=== PATIENT | female | born 1955 | race Caucasian/White ===

== ENCOUNTER 2020-06-10 23:08 | Inpatient (IN) ==
[2020-06-11] MEDS ORDERED: ALUM/MAG/SIMETH/LIDO VISC 1:1 30 ML BOTTLE PO STA (00:48)
[2020-06-11] MEDS ORDERED: PANTOPRAZOLE 40 MG VIAL IV STA (00:48)
[2020-06-11] MEDS ORDERED: SODIUM CHLORIDE 0.9% 500 ML IV STA (00:48)
[2020-06-11] MEDS ORDERED: ONDANSETRON 4 MG/2 ML VIAL IV STA (00:48)
[2020-06-11] MEDS ORDERED: HYDROmorphone 2 MG/1 ML VIAL IV STA (00:48)
[2020-06-11 01:38] LABS: Basophils % 0.2 % (0.0-0.8); Hematocrit 38.8 VOL% (35.7-47.0); Hemoglobin 12.7 GM/DL (12.0-16.0); Immature Granulocytes % 0.6 %; Immature Granulocytes Absolute 0.08 #; Mean Corpuscular HGB Conc 32.7 GM/DL (32-36); Mean Corpuscular Volume 86.4 FL (87-102); Mean Platelet Volume 9.3 FL (9.6-12.0); Monocytes % 3.3 % (1.7-12.7); Neutrophils % 87.9 % (38.7-73.9); Platelet Count 266 T/CUMM (130-400); Red Blood Count 4.49 MC/CUMM (3.8-5.5); Red Cell Distribution Width 12.8 % (9.3-17.3); White Blood Count 12.7 T/CUMM (4-12)
[2020-06-11 01:57] LABS: Alanine Aminotransferase 30 U/L (13-56); Albumin 2.8 G/DL (3.4-5.0); Alkaline Phosphatase 129 U/L (45-117); Amylase 27 U/L (25-115); Aspartate Amino Transferase 36 U/L (0-37); Bilirubin,Total < 0.39 MG/DL (0.2-1.0); Blood Urea Nitrogen 16 MG/DL (7-18); Calcium 9.3 MG/DL (8.5-10.1); Estimated Glom Filtration Rate 58 ML/MIN; Glucose 255 MG/DL (74-106); Total Protein 8.1 G/DL (6.4-8.3)
[2020-06-11] MEDS ORDERED: DEXTROSE 50% 25 GM/50 ML VIAL IV PRN (03:52)
[2020-06-11] MEDS ORDERED: GLUCAGON 1 MG VIAL IM PRN (03:52)
[2020-06-11] MEDS ORDERED: ONDANSETRON 4 MG/2 ML VIAL IV PRN (03:57)
[2020-06-11] MEDS ORDERED: ALUM/MAG/SIMETH/LIDO VISC 1:1 30 ML BOTTLE PO PRN (03:57)
[2020-06-11] MEDS ORDERED: MORPHINE 4 MG/1 ML VIAL IV PRN (03:57)
[2020-06-11] MEDS: ACETAMINOPHEN 325 MG TABLET PO PRN (07:45)
[2020-06-11 08:04] LABS: Risk Ratio 2.06
[2020-06-11 08:05] LABS: Barbiturates Screen,Urine Negative (Negative); Benzodiazepines Screen,Urine Negative (Negative); Cannabinoid Screen,Urine Positive (Negative); Opiate Screen,Urine Negative (Negative); Phencyclidine Screen,Urine Negative (Negative)
[2020-06-11 08:17] LABS: CKMB % 5.2 %
[2020-06-11 08:24] LABS: Troponin I 1.48 NG/ML (0.00-0.045)
[2020-06-11] MEDS: INSULIN REGULAR 100 UNIT/ML SUBCUT SCH ×3 (08:59→18:33)
[2020-06-11] MEDS ORDERED: carvediloL 3.125 MG TABLET PO SCH (09:00)
[2020-06-11] MEDS ORDERED: ATORVASTATIN 20 MG TABLET PO SCH (09:00)
[2020-06-11] MEDS ORDERED: ENALAPRIL 2.5 MG TABLET PO SCH (09:00)
[2020-06-11] MEDS ORDERED: METOPROLOL TARTRATE 5 MG/5 ML VIAL IV ONE (09:19)
[2020-06-11] MEDS: CLOPIDOGREL 75 MG TABLET PO SCH (09:36)
[2020-06-11 09:37] LABS: Apearance,Urine CLOUDY (Clear); Bilirubin,Urine Negative (Negative); Blood, Urine Moderate mg/dL (Negative); Glucose,Urine (UA) 50 mg/dL (Negative); Ketones,Urine 20 mg/dL (Negative); Nitrite,Urine Negative (Negative); Protein,Urine 100 MG/DL; RBC,Urine 59 /HPF (0-4); Squamous Epithelial Cell,Urine Occasional /HPF (0-10); Urine Color Yellow (Yellow); Urine Specific Gravity 1.048 (1.001-1.035); WBC,Urine 196 /HPF (0-6)
[2020-06-11] MEDS ORDERED: METOPROLOL TARTRATE 25 MG TABLET PO SCH (10:00)
[2020-06-11] MEDS: ISOSORBIDE MONONITRATE 30 MG TABLET PO SCH (10:09)
[2020-06-11] MEDS: OMEGA 3 ACID ETHYL ESTERS 1 GM CAPSULE PO SCH (10:10)
[2020-06-11] MEDS: ENOXAPARIN 40 MG/0.4 ML SYRINGE SUBCUT SCH (10:53)
[2020-06-11] MEDS: METOPROLOL TARTRATE 25 MG TABLET PO SCH ×2 (10:53→21:44)
[2020-06-11] MEDS: ATORVASTATIN 40 MG TABLET PO SCH (21:43)
[2020-06-12] MEDS: INSULIN REGULAR 100 UNIT/ML SUBCUT SCH ×4 (01:15→18:27)
[2020-06-12] MEDS: ACETAMINOPHEN 325 MG TABLET PO PRN ×4 (02:45→22:08)
[2020-06-12 05:48] LABS: Basophils % 0.2 % (0.0-0.8); Hematocrit 31.5 VOL% (35.7-47.0); Immature Granulocytes % 1.1 %; Immature Granulocytes Absolute 0.22 #; Lymphocytes # 1.3 10*3/uL (1.4-4.0); Lymphocytes % 6.4 % (21.3-54.2); Mean Corpuscular HGB Conc 32.4 GM/DL (32-36); Mean Corpuscular Volume 88.2 FL (87-102); Mean Platelet Volume 9.6 FL (9.6-12.0); Monocytes % 6.3 % (1.7-12.7); Platelet Count 221 T/CUMM (130-400); Red Cell Distribution Width 13.2 % (9.3-17.3)
[2020-06-12 05:50] LABS: Calcium 8.3 MG/DL (8.5-10.1)
[2020-06-12 05:56] LABS: Hemoglobin 10.2 GM/DL (12.0-16.0); Red Blood Count 3.57 MC/CUMM (3.8-5.5)
[2020-06-12] MEDS ORDERED: SODIUM CHLORIDE 0.9% 1,000 ML IV ONE (07:26)
[2020-06-12] MEDS: MEROPENEM 500 MG in SODIUM CHLORIDE 0.9% 100 ML IV SCH ×3 (08:49→18:30)
[2020-06-12] MEDS: CLOPIDOGREL 75 MG TABLET PO SCH (08:50)
[2020-06-12] MEDS: ISOSORBIDE MONONITRATE 30 MG TABLET PO SCH (08:50)
[2020-06-12] MEDS: ASPIRIN EC 81 MG TABLET PO SCH (08:50)
[2020-06-12] MEDS: OMEGA 3 ACID ETHYL ESTERS 1 GM CAPSULE PO SCH (08:51)
[2020-06-12] MEDS: ENOXAPARIN 40 MG/0.4 ML SYRINGE SUBCUT SCH (08:51)
[2020-06-12] MEDS: METOPROLOL TARTRATE 25 MG TABLET PO SCH ×2 (08:54→21:25)
[2020-06-12] MEDS ORDERED: ASPIRIN EC 325 MG TABLET PO SCH (09:00)
[2020-06-12] MEDS: PHENAZOPYRIDINE 95 MG TABLET PO SCH ×3 (10:58→16:14)
[2020-06-12 12:48] LABS: Apearance,Urine Slightly Hazy (Clear); Bacteria,Urine Occasional /HPF (Few); Bilirubin,Urine Negative (Negative); Blood, Urine Large mg/dL (Negative); Glucose,Urine (UA) Negative (Negative); Ketones,Urine 5 mg/dL (Negative); Mucus,Urine Occasional /LPF (Occasional); Nitrite,Urine Negative (Negative); Protein,Urine 100 MG/DL; RBC,Urine 7 /HPF (0-4); Squamous Epithelial Cell,Urine Occasional /HPF (0-10); Urine Color Amber (Yellow); Urine Specific Gravity 1.021 (1.001-1.035); WBC,Urine 46 /HPF (0-6)
[2020-06-12] MEDS: ATORVASTATIN 40 MG TABLET PO SCH (21:24)
[2020-06-12] MEDS ORDERED: PHENAZOPYRIDINE 95 MG TABLET PO ONE (22:19)
[2020-06-13] MEDS: INSULIN REGULAR 100 UNIT/ML SUBCUT SCH ×4 (01:12→18:43)
[2020-06-13] MEDS: MEROPENEM 500 MG in SODIUM CHLORIDE 0.9% 100 ML IV SCH ×2 (02:13→08:39)
[2020-06-13 05:18] LABS: Basophils % 0.2 % (0.0-0.8); Eosinophils % 0.1 % (0.00-10.9); Hematocrit 32.7 VOL% (35.7-47.0); Hemoglobin 10.4 GM/DL (12.0-16.0); Immature Granulocytes % 0.6 %; Lymphocytes # 1.2 10*3/uL (1.4-4.0); Lymphocytes % 7.8 % (21.3-54.2); Mean Corpuscular HGB Conc 31.8 GM/DL (32-36); Mean Corpuscular Volume 88.4 FL (87-102); Monocytes % 4.8 % (1.7-12.7); Neutrophils % 86.5 % (38.7-73.9); Red Cell Distribution Width 13.2 % (9.3-17.3); White Blood Count 15.7 T/CUMM (4-12)
[2020-06-13 05:31] LABS: Calcium 8.7 MG/DL (8.5-10.1)
[2020-06-13 05:42] LABS: Platelet Count 171 T/CUMM (130-400)
[2020-06-13] MEDS ORDERED: GLUCAGON 1 MG VIAL IM PRN (08:12)
[2020-06-13] MEDS ORDERED: DEXTROSE 50% 25 GM/50 ML VIAL IV PRN (08:12)
[2020-06-13] MEDS: ENOXAPARIN 40 MG/0.4 ML SYRINGE SUBCUT SCH (08:40)
[2020-06-13] MEDS: OMEGA 3 ACID ETHYL ESTERS 1 GM CAPSULE PO SCH (08:40)
[2020-06-13] MEDS: CLOPIDOGREL 75 MG TABLET PO SCH (08:40)
[2020-06-13] MEDS: ASPIRIN EC 81 MG TABLET PO SCH (08:40)
[2020-06-13] MEDS: ISOSORBIDE MONONITRATE 30 MG TABLET PO SCH (08:41)
[2020-06-13] MEDS: ACETAMINOPHEN 325 MG TABLET PO PRN (08:41)
[2020-06-13] MEDS: METOPROLOL TARTRATE 25 MG TABLET PO SCH ×2 (08:41→21:09)
[2020-06-13] MEDS: PHENAZOPYRIDINE 95 MG TABLET PO SCH ×3 (09:30→16:39)
[2020-06-13] MEDS: cefTRIAXone 2,000 MG in SYRINGE 1 EACH IV SCH (12:00)
[2020-06-13] MEDS: ATORVASTATIN 40 MG TABLET PO SCH (21:08)
[2020-06-14] MEDS: INSULIN REGULAR 100 UNIT/ML SUBCUT SCH ×4 (00:29→18:15)
[2020-06-14 05:08] LABS: Basophils % 0.2 % (0.0-0.8); Eosinophils # 0.1 10*3/uL (0.0-0.87); Eosinophils % 0.9 % (0.00-10.9); Hematocrit 29.8 VOL% (35.7-47.0); Hemoglobin 9.5 GM/DL (12.0-16.0); Immature Granulocytes % 0.6 %; Immature Granulocytes Absolute 0.07 #; Lymphocytes # 1.5 10*3/uL (1.4-4.0); Lymphocytes % 12.6 % (21.3-54.2); Mean Corpuscular HGB Conc 31.9 GM/DL (32-36); Mean Corpuscular Volume 87.1 FL (87-102); Mean Platelet Volume 9.6 FL (9.6-12.0); Monocytes % 6.3 % (1.7-12.7); Neutrophils % 79.4 % (38.7-73.9); Platelet Count 187 T/CUMM (130-400); Red Blood Count 3.42 MC/CUMM (3.8-5.5); Red Cell Distribution Width 13.2 % (9.3-17.3); White Blood Count 11.5 T/CUMM (4-12)
[2020-06-14 05:33] LABS: Calcium 8.4 MG/DL (8.5-10.1); Osmolality,Calculated 271.2 MOS/KG (273-304)
[2020-06-14] MEDS: PHENAZOPYRIDINE 95 MG TABLET PO SCH ×3 (09:19→18:15)
[2020-06-14] MEDS: ASPIRIN EC 81 MG TABLET PO SCH (09:19)
[2020-06-14] MEDS: OMEGA 3 ACID ETHYL ESTERS 1 GM CAPSULE PO SCH (09:19)
[2020-06-14] MEDS: ENOXAPARIN 40 MG/0.4 ML SYRINGE SUBCUT SCH (09:20)
[2020-06-14] MEDS: CLOPIDOGREL 75 MG TABLET PO SCH (09:20)
[2020-06-14] MEDS: ISOSORBIDE MONONITRATE 30 MG TABLET PO SCH (09:20)
[2020-06-14] MEDS: METOPROLOL TARTRATE 25 MG TABLET PO SCH ×2 (09:22→21:10)
[2020-06-14] MEDS: cefTRIAXone 2,000 MG in SYRINGE 1 EACH IV SCH (12:45)
[2020-06-14] MEDS: ATORVASTATIN 40 MG TABLET PO SCH (21:10)
[2020-06-15] MEDS: INSULIN REGULAR 100 UNIT/ML SUBCUT SCH ×4 (01:07→18:07)
[2020-06-15 04:41] LABS: Basophils % 0.4 % (0.0-0.8); Eosinophils # 0.2 10*3/uL (0.0-0.87); Eosinophils % 2.1 % (0.00-10.9); Hematocrit 29.2 VOL% (35.7-47.0); Hemoglobin 9.4 GM/DL (12.0-16.0); Immature Granulocytes % 0.4 %; Immature Granulocytes Absolute 0.03 #; Lymphocytes # 1.5 10*3/uL (1.4-4.0); Lymphocytes % 18.2 % (21.3-54.2); Mean Corpuscular HGB Conc 32.2 GM/DL (32-36); Mean Corpuscular Volume 86.1 FL (87-102); Mean Platelet Volume 10.1 FL (9.6-12.0); Neutrophils % 70.9 % (38.7-73.9); Platelet Count 197 T/CUMM (130-400); Red Blood Count 3.39 MC/CUMM (3.8-5.5)
[2020-06-15 05:04] LABS: Calcium 7.9 MG/DL (8.5-10.1); Osmolality,Calculated 274.8 MOS/KG (273-304)
[2020-06-15] MEDS: ISOSORBIDE MONONITRATE 30 MG TABLET PO SCH (09:19)
[2020-06-15] MEDS: ASPIRIN EC 81 MG TABLET PO SCH (09:19)
[2020-06-15] MEDS: PHENAZOPYRIDINE 95 MG TABLET PO SCH ×3 (09:19→18:06)
[2020-06-15] MEDS: METOPROLOL TARTRATE 25 MG TABLET PO SCH ×2 (09:19→20:56)
[2020-06-15] MEDS: OMEGA 3 ACID ETHYL ESTERS 1 GM CAPSULE PO SCH (09:19)
[2020-06-15] MEDS: CLOPIDOGREL 75 MG TABLET PO SCH (09:19)
[2020-06-15] MEDS: ENOXAPARIN 40 MG/0.4 ML SYRINGE SUBCUT SCH (09:20)
[2020-06-15] MEDS: FUROSEMIDE 40 MG TABLET PO SCH (13:14)
[2020-06-15] MEDS: cefTRIAXone 2,000 MG in SYRINGE 1 EACH IV SCH (13:14)
[2020-06-15] MEDS ORDERED: ALBUTEROL/IPRATROPIUM 3 ML NEB RESP TX PRN (14:59)
[2020-06-15] MEDS ORDERED: guaiFENesin 200 MG/10 ML UDCUP PO PRN (14:59)
[2020-06-15] MEDS: ATORVASTATIN 40 MG TABLET PO SCH (20:56)
[2020-06-16] MEDS: INSULIN REGULAR 100 UNIT/ML SUBCUT SCH ×4 (00:21→19:13)
[2020-06-16 05:19] LABS: Basophils % 0.3 % (0.0-0.8); Eosinophils # 0.2 10*3/uL (0.0-0.87); Eosinophils % 2.9 % (0.00-10.9); Hematocrit 30.1 VOL% (35.7-47.0); Hemoglobin 9.6 GM/DL (12.0-16.0); Immature Granulocytes % 0.7 %; Immature Granulocytes Absolute 0.05 #; Lymphocytes # 1.9 10*3/uL (1.4-4.0); Lymphocytes % 24.9 % (21.3-54.2); Mean Corpuscular HGB Conc 31.9 GM/DL (32-36); Mean Platelet Volume 9.7 FL (9.6-12.0); Monocytes % 8.4 % (1.7-12.7); Neutrophils % 62.8 % (38.7-73.9); Platelet Count 212 T/CUMM (130-400); Red Blood Count 3.42 MC/CUMM (3.8-5.5); White Blood Count 7.5 T/CUMM (4-12)
[2020-06-16 05:55] LABS: Calcium 8.5 MG/DL (8.5-10.1); Osmolality,Calculated 280.4 MOS/KG (273-304)
[2020-06-16] MEDS: FUROSEMIDE 40 MG TABLET PO SCH (09:31)
[2020-06-16] MEDS: ISOSORBIDE MONONITRATE 30 MG TABLET PO SCH (09:32)
[2020-06-16] MEDS: CLOPIDOGREL 75 MG TABLET PO SCH (09:32)
[2020-06-16] MEDS: OMEGA 3 ACID ETHYL ESTERS 1 GM CAPSULE PO SCH (09:32)
[2020-06-16] MEDS: PHENAZOPYRIDINE 95 MG TABLET PO SCH ×3 (09:32→16:50)
[2020-06-16] MEDS: METOPROLOL TARTRATE 25 MG TABLET PO SCH ×2 (09:32→20:50)
[2020-06-16] MEDS: ASPIRIN EC 81 MG TABLET PO SCH (09:32)
[2020-06-16] MEDS: ENOXAPARIN 40 MG/0.4 ML SYRINGE SUBCUT SCH (09:38)
[2020-06-16] MEDS: cefTRIAXone 2,000 MG in SYRINGE 1 EACH IV SCH (12:53)
[2020-06-16] MEDS: ATORVASTATIN 40 MG TABLET PO SCH (20:50)
[2020-06-17] MEDS: INSULIN REGULAR 100 UNIT/ML SUBCUT SCH ×4 (00:19→18:39)
[2020-06-17 04:08] LABS: Basophils % 0.3 % (0.0-0.8); Eosinophils # 0.2 10*3/uL (0.0-0.87); Eosinophils % 2.4 % (0.00-10.9); Hematocrit 30.7 VOL% (35.7-47.0); Hemoglobin 9.7 GM/DL (12.0-16.0); Immature Granulocytes % 0.9 %; Immature Granulocytes Absolute 0.08 #; Lymphocytes # 1.8 10*3/uL (1.4-4.0); Lymphocytes % 20.9 % (21.3-54.2); Mean Corpuscular HGB Conc 31.6 GM/DL (32-36); Mean Corpuscular Volume 86.5 FL (87-102); Mean Platelet Volume 9.4 FL (9.6-12.0); Monocytes % 9.2 % (1.7-12.7); Neutrophils % 66.3 % (38.7-73.9); Platelet Count 235 T/CUMM (130-400); Red Blood Count 3.55 MC/CUMM (3.8-5.5); Red Cell Distribution Width 13.1 % (9.3-17.3); White Blood Count 8.7 T/CUMM (4-12)
[2020-06-17 04:34] LABS: Calcium 8.4 MG/DL (8.5-10.1); Osmolality,Calculated 278.4 MOS/KG (273-304)
[2020-06-17] MEDS: POTASSIUM CHLORIDE 20 MEQ TABLET PO PRN ×4 (05:38→21:28)
[2020-06-17] MEDS: ENOXAPARIN 40 MG/0.4 ML SYRINGE SUBCUT SCH (09:15)
[2020-06-17] MEDS: PHENAZOPYRIDINE 95 MG TABLET PO SCH ×3 (09:15→16:44)
[2020-06-17] MEDS: OMEGA 3 ACID ETHYL ESTERS 1 GM CAPSULE PO SCH (09:16)
[2020-06-17] MEDS: METOPROLOL TARTRATE 25 MG TABLET PO SCH ×2 (09:16→21:28)
[2020-06-17] MEDS: ISOSORBIDE MONONITRATE 30 MG TABLET PO SCH (09:16)
[2020-06-17] MEDS: ASPIRIN EC 81 MG TABLET PO SCH (09:16)
[2020-06-17] MEDS: CLOPIDOGREL 75 MG TABLET PO SCH (09:16)
[2020-06-17] MEDS: FUROSEMIDE 40 MG TABLET PO SCH (09:16)
[2020-06-17] MEDS: cefTRIAXone 2,000 MG in SYRINGE 1 EACH IV SCH (12:27)
[2020-06-17] MEDS: ATORVASTATIN 40 MG TABLET PO SCH (21:29)
[2020-06-18] MEDS: INSULIN REGULAR 100 UNIT/ML SUBCUT SCH ×3 (01:10→13:20)
[2020-06-18 04:31] LABS: Calcium 8.5 MG/DL (8.5-10.1); Osmolality,Calculated 278.5 MOS/KG (273-304)
[2020-06-18] MEDS: OMEGA 3 ACID ETHYL ESTERS 1 GM CAPSULE PO SCH (09:55)
[2020-06-18] MEDS: PHENAZOPYRIDINE 95 MG TABLET PO SCH ×2 (09:55→13:20)
[2020-06-18] MEDS: FUROSEMIDE 40 MG TABLET PO SCH (09:55)
[2020-06-18] MEDS: ENOXAPARIN 40 MG/0.4 ML SYRINGE SUBCUT SCH (09:55)
[2020-06-18] MEDS: METOPROLOL TARTRATE 25 MG TABLET PO SCH (09:56)
[2020-06-18] MEDS: ASPIRIN EC 81 MG TABLET PO SCH (09:56)
[2020-06-18] MEDS: ISOSORBIDE MONONITRATE 30 MG TABLET PO SCH (09:56)
[2020-06-18] MEDS: CLOPIDOGREL 75 MG TABLET PO SCH (09:56)
[2020-06-18 11:36] VITALS: BP 118/57
[2020-06-18] MEDS ORDERED: SODIUM CHLORIDE 0.9% 250 ML IV ONE (12:30)
[2020-06-18] MEDS: cefTRIAXone 2,000 MG in SYRINGE 1 EACH IV SCH (12:48)
== END 2020-06-18 14:40 | disposition home or self-care (01) | DRG 871 ==
LOC: EDUNIT# → EDBD → N.EDINP 23:08 → N.ED 23:08 → SUATTDRO 06-11 04:16 → N.TELEN 06-11 11:57 → SUATTDRO 06-15 11:40
PROVIDERS: ADMIT Internal Medicine; ATTEND Internal Medicine

== ENCOUNTER 2020-06-28 00:15 | Inpatient (IN) ==
[2020-06-28 01:40] LABS: Basophils % 0.2 % (0.0-0.8); Eosinophils % 0.1 % (0.00-10.9); Hematocrit 34.9 VOL% (35.7-47.0); Hemoglobin 11.1 GM/DL (12.0-16.0); Immature Granulocytes % 0.6 %; Immature Granulocytes Absolute 0.09 #; Lymphocytes # 1.4 10*3/uL (1.4-4.0); Lymphocytes % 8.9 % (21.3-54.2); Mean Corpuscular HGB Conc 31.8 GM/DL (32-36); Mean Corpuscular Volume 86.2 FL (87-102); Mean Platelet Volume 9.3 FL (9.6-12.0); Monocytes % 6.5 % (1.7-12.7); Neutrophils % 83.7 % (38.7-73.9); Platelet Count 256 T/CUMM (130-400); Red Blood Count 4.05 MC/CUMM (3.8-5.5); White Blood Count 15.3 T/CUMM (4-12)
[2020-06-28] MEDS ORDERED: ONDANSETRON 4 MG/2 ML VIAL IV ONE (01:52)
[2020-06-28] MEDS ORDERED: MORPHINE 4 MG/1 ML VIAL IV STA (01:52)
[2020-06-28 02:31] LABS: Albumin 2.5 G/DL (3.4-5.0); Bilirubin,Total 0.5 MG/DL (0.2-1.0); Calcium 8.9 MG/DL (8.5-10.1); Osmolality,Calculated 276.8 MOS/KG (273-304); Total Protein 7.8 G/DL (6.4-8.3)
[2020-06-28 03:12] LABS: Bacteria,Urine Occasional /HPF (Few); Bilirubin,Urine Negative (Negative); Blood, Urine Small mg/dL (Negative); Glucose,Urine (UA) Negative (Negative); Hyaline Casts,Urine 47 /LPF (0-3); Ketones,Urine 20 mg/dL (Negative); Mucus,Urine Occasional /LPF (Occasional); Nitrite,Urine Negative (Negative); Protein,Urine 30 MG/DL; RBC,Urine 5 /HPF (0-4); Squamous Epithelial Cell,Urine Occasional /HPF (0-10); Urine Appearance CLEAR (Clear); Urine Color Yellow (Yellow); Urine Specific Gravity 1.013 (1.001-1.035); Urine Urobilinogen < 2.0 EU/DL (0.2-1.0); WBC,Urine 27 /HPF (0-6)
[2020-06-28] MEDS ORDERED: cefTRIAXone 1,000 MG in SODIUM CHLORIDE 0.9% 100 ML IV STA (03:39)
[2020-06-28] MEDS ORDERED: PIPERACILLIN/TAZOBACTAM 3,375 MG in SODIUM CHLORIDE 0.9% 100 ML IV STA (04:03)
[2020-06-28] MEDS ORDERED: cefTRIAXone 1,000 MG VIAL ONE (06:12)
[2020-06-28] MEDS ORDERED: SODIUM CHLORIDE 0.9% 100 ML IV ONE (06:13)
[2020-06-28] MEDS ORDERED: HYDROmorphone 2 MG/1 ML VIAL ONE (06:18)
[2020-06-28] MEDS ORDERED: hydrALAZINE 20 MG/1 ML VIAL IV PRN (06:21)
[2020-06-28] MEDS ORDERED: DOCUSATE SODIUM 100 MG CAPSULE PO PRN (06:21)
[2020-06-28] MEDS ORDERED: GLUCAGON 1 MG VIAL IM PRN (06:21)
[2020-06-28] MEDS ORDERED: DEXTROSE 50% 25 GM/50 ML VIAL IV PRN (06:21)
[2020-06-28] MEDS: HYDROmorphone 2 MG/1 ML VIAL IV PRN ×2 (06:32→12:26)
[2020-06-28] MEDS: INSULIN LISPRO 100 UNIT/ML SUBCUT SCH ×3 (12:26→21:55)
[2020-06-28] MEDS: PIPERACILLIN/TAZOBACTAM 3,375 MG in SODIUM CHLORIDE 0.9% 100 ML IV SCH ×2 (12:26→22:58)
[2020-06-29] MEDS: HYDROmorphone 2 MG/1 ML VIAL IV PRN ×3 (01:52→21:33)
[2020-06-29 06:30] LABS: Basophils # 0.1 10*3/uL (0.0-0.2); Basophils % 0.2 % (0.0-0.8); Hematocrit 38.3 VOL% (35.7-47.0); Hemoglobin 12.1 GM/DL (12.0-16.0); Immature Granulocytes % 1.7 %; Immature Granulocytes Absolute 0.43 #; Lymphocytes # 1.7 10*3/uL (1.4-4.0); Lymphocytes % 6.7 % (21.3-54.2); Mean Corpuscular HGB Conc 31.6 GM/DL (32-36); Mean Corpuscular Volume 86.8 FL (87-102); Mean Platelet Volume 9.8 FL (9.6-12.0); Monocytes % 7.4 % (1.7-12.7); Platelet Count 243 T/CUMM (130-400); Red Blood Count 4.41 MC/CUMM (3.8-5.5); Red Cell Distribution Width 14.2 % (9.3-17.3); White Blood Count 25.7 T/CUMM (4-12)
[2020-06-29 06:53] LABS: Lymphocytes 7 % (20-55); Platelet Estimate Adequate; Segmented Neutrophils 85 % (50-85); Total Cells Counted 100
[2020-06-29 06:54] LABS: Burr Cells Slight; Hypochromasia 1+; Microcytosis 1+; Ovalocytes Slight
[2020-06-29 07:04] LABS: Albumin 2.1 G/DL (3.4-5.0); Bilirubin,Total 0.7 MG/DL (0.2-1.0); Calcium 8.6 MG/DL (8.5-10.1); Osmolality,Calculated 271.2 MOS/KG (273-304); Total Protein 7.5 G/DL (6.4-8.3)
[2020-06-29] MEDS: INSULIN LISPRO 100 UNIT/ML SUBCUT SCH ×4 (09:40→20:43)
[2020-06-29] MEDS: PIPERACILLIN/TAZOBACTAM 3,375 MG in SODIUM CHLORIDE 0.9% 100 ML IV SCH ×2 (09:43→17:30)
[2020-06-29] MEDS: ISOSORBIDE MONONITRATE 30 MG TABLET PO SCH (13:12)
[2020-06-29] MEDS: FUROSEMIDE 40 MG TABLET PO SCH (13:12)
[2020-06-29] MEDS: METOPROLOL TARTRATE 25 MG TABLET PO SCH (20:49)
[2020-06-29] MEDS: ATORVASTATIN 40 MG TABLET PO SCH (20:49)
[2020-06-30] MEDS: ONDANSETRON 4 MG/2 ML VIAL IV PRN (01:35)
[2020-06-30] MEDS: PIPERACILLIN/TAZOBACTAM 3,375 MG in SODIUM CHLORIDE 0.9% 100 ML IV SCH ×3 (01:35→16:07)
[2020-06-30 05:59] LABS: Basophils # 0.1 10*3/uL (0.0-0.2); Basophils % 0.2 % (0.0-0.8); Hematocrit 33.5 VOL% (35.7-47.0); Hemoglobin 10.6 GM/DL (12.0-16.0); Immature Granulocytes % 1.7 %; Immature Granulocytes Absolute 0.44 #; Lymphocytes # 1.7 10*3/uL (1.4-4.0); Lymphocytes % 6.8 % (21.3-54.2); Mean Corpuscular HGB Conc 31.6 GM/DL (32-36); Mean Corpuscular Volume 86.8 FL (87-102); Mean Platelet Volume 9.7 FL (9.6-12.0); Monocytes % 5.4 % (1.7-12.7); Neutrophils % 85.9 % (38.7-73.9); Platelet Count 248 T/CUMM (130-400); Red Blood Count 3.86 MC/CUMM (3.8-5.5); Red Cell Distribution Width 14.3 % (9.3-17.3); White Blood Count 25.2 T/CUMM (4-12)
[2020-06-30 06:17] LABS: Calcium 8.8 MG/DL (8.5-10.1)
[2020-06-30 06:35] LABS: Anisocytosis Slight; Platelet Estimate Normal
[2020-06-30] MEDS: HYDROmorphone 2 MG/1 ML VIAL IV PRN ×2 (07:39→18:23)
[2020-06-30] MEDS: INSULIN LISPRO 100 UNIT/ML SUBCUT SCH ×4 (08:26→20:21)
[2020-06-30] MEDS: ISOSORBIDE MONONITRATE 30 MG TABLET PO SCH (10:33)
[2020-06-30] MEDS: lisinopriL 2.5 MG TABLET PO SCH (10:34)
[2020-06-30] MEDS: METOPROLOL TARTRATE 25 MG TABLET PO SCH ×2 (10:34→20:21)
[2020-06-30] MEDS: FUROSEMIDE 40 MG TABLET PO SCH (10:34)
[2020-06-30] MEDS: LEVOFLOXACIN INJ 500 MG in PREMIX 1 EACH IV SCH (13:10)
[2020-06-30] MEDS: ALBUTEROL 0.63 MG/3 ML NEB RESP TX SCH ×2 (14:46→19:51)
[2020-06-30] MEDS: ATORVASTATIN 40 MG TABLET PO SCH (20:21)
[2020-07-01] MEDS: HYDROmorphone 2 MG/1 ML VIAL IV PRN ×2 (00:35→15:12)
[2020-07-01] MEDS: ALBUTEROL 0.63 MG/3 ML NEB RESP TX SCH ×4 (00:37→18:47)
[2020-07-01] MEDS: PIPERACILLIN/TAZOBACTAM 3,375 MG in SODIUM CHLORIDE 0.9% 100 ML IV SCH ×3 (01:34→16:54)
[2020-07-01 06:30] LABS: Basophils % 0.2 % (0.0-0.8); Eosinophils # 0.1 10*3/uL (0.0-0.87); Eosinophils % 0.3 % (0.00-10.9); Hematocrit 30.9 VOL% (35.7-47.0); Hemoglobin 9.7 GM/DL (12.0-16.0); Immature Granulocytes % 0.9 %; Immature Granulocytes Absolute 0.16 #; Lymphocytes # 1.7 10*3/uL (1.4-4.0); Lymphocytes % 9.9 % (21.3-54.2); Mean Corpuscular HGB Conc 31.4 GM/DL (32-36); Mean Corpuscular Volume 86.8 FL (87-102); Mean Platelet Volume 9.7 FL (9.6-12.0); Monocytes % 6.1 % (1.7-12.7); Neutrophils % 82.6 % (38.7-73.9); Platelet Count 222 T/CUMM (130-400); Red Blood Count 3.56 MC/CUMM (3.8-5.5); Red Cell Distribution Width 14.3 % (9.3-17.3); White Blood Count 17.3 T/CUMM (4-12)
[2020-07-01 06:50] LABS: Calcium 8.5 MG/DL (8.5-10.1); Osmolality,Calculated 271.1 MOS/KG (273-304)
[2020-07-01] MEDS: FUROSEMIDE 40 MG TABLET PO SCH (08:16)
[2020-07-01] MEDS: ISOSORBIDE MONONITRATE 30 MG TABLET PO SCH (08:16)
[2020-07-01] MEDS: METOPROLOL TARTRATE 25 MG TABLET PO SCH ×2 (08:19→20:43)
[2020-07-01] MEDS: lisinopriL 2.5 MG TABLET PO SCH (08:19)
[2020-07-01] MEDS: INSULIN LISPRO 100 UNIT/ML SUBCUT SCH ×4 (09:43→20:37)
[2020-07-01] MEDS: LEVOFLOXACIN INJ 500 MG in PREMIX 1 EACH IV SCH (12:36)
[2020-07-01] MEDS: ATORVASTATIN 40 MG TABLET PO SCH (20:37)
[2020-07-01] MEDS: MELATONIN 3 MG TABLET PO PRN (22:26)
[2020-07-02] MEDS: ALBUTEROL 0.63 MG/3 ML NEB RESP TX SCH ×4 (00:35→19:33)
[2020-07-02] MEDS: PIPERACILLIN/TAZOBACTAM 3,375 MG in SODIUM CHLORIDE 0.9% 100 ML IV SCH ×3 (00:50→17:32)
[2020-07-02] MEDS: HYDROmorphone 2 MG/1 ML VIAL IV PRN ×2 (01:02→19:44)
[2020-07-02 05:41] LABS: Basophils % 0.2 % (0.0-0.8); Eosinophils # 0.1 10*3/uL (0.0-0.87); Eosinophils % 0.5 % (0.00-10.9); Hematocrit 29.7 VOL% (35.7-47.0); Hemoglobin 9.3 GM/DL (12.0-16.0); Immature Granulocytes % 0.4 %; Immature Granulocytes Absolute 0.05 #; Lymphocytes # 1.6 10*3/uL (1.4-4.0); Lymphocytes % 12.1 % (21.3-54.2); Mean Corpuscular HGB Conc 31.3 GM/DL (32-36); Mean Corpuscular Volume 85.3 FL (87-102); Mean Platelet Volume 9.6 FL (9.6-12.0); Monocytes % 7.6 % (1.7-12.7); Neutrophils % 79.2 % (38.7-73.9); Platelet Count 178 T/CUMM (130-400); Red Blood Count 3.48 MC/CUMM (3.8-5.5); Red Cell Distribution Width 14.5 % (9.3-17.3); White Blood Count 12.9 T/CUMM (4-12)
[2020-07-02 06:13] LABS: Calcium 8.5 MG/DL (8.5-10.1); Osmolality,Calculated 273.8 MOS/KG (273-304)
[2020-07-02 07:39] LABS: % Iron Saturation 8.1 % (18-50)
[2020-07-02] MEDS: INSULIN LISPRO 100 UNIT/ML SUBCUT SCH ×4 (07:40→20:33)
[2020-07-02] MEDS: METOPROLOL TARTRATE 25 MG TABLET PO SCH ×2 (08:42→20:35)
[2020-07-02] MEDS: ISOSORBIDE MONONITRATE 30 MG TABLET PO SCH (08:42)
[2020-07-02] MEDS: lisinopriL 2.5 MG TABLET PO SCH (08:42)
[2020-07-02] MEDS: FUROSEMIDE 40 MG TABLET PO SCH (08:43)
[2020-07-02] MEDS ORDERED: POTASSIUM CHLORIDE INJ 50 MEQ in SODIUM CHLORIDE 0.9% 500 ML IV ONE (10:00)
[2020-07-02 10:07] LABS: Folate 13.2 NG/ML (5.4-24.0)
[2020-07-02] MEDS: IRON SUCROSE 200 MG in SODIUM CHLORIDE 0.9% 100 ML IV SCH (12:44)
[2020-07-02] MEDS: LEVOFLOXACIN INJ 500 MG in PREMIX 1 EACH IV SCH (13:27)
[2020-07-02] MEDS: SERTRALINE 100 MG TABLET PO SCH (14:08)
[2020-07-02] MEDS: FLUoxetine 20 MG CAPSULE PO SCH (14:08)
[2020-07-02] MEDS ORDERED: POTASSIUM CHLORIDE RIDER 10 MEQ in PREMIX 1 EACH IV PRN (15:30)
[2020-07-02] MEDS: MELATONIN 3 MG TABLET PO PRN (20:35)
[2020-07-02] MEDS: ATORVASTATIN 40 MG TABLET PO SCH (20:35)
[2020-07-03] MEDS: ALBUTEROL 0.63 MG/3 ML NEB RESP TX SCH ×4 (00:29→20:55)
[2020-07-03] MEDS: PIPERACILLIN/TAZOBACTAM 3,375 MG in SODIUM CHLORIDE 0.9% 100 ML IV SCH ×3 (01:09→16:47)
[2020-07-03 05:48] LABS: Basophils # 0.1 10*3/uL (0.0-0.2); Basophils % 0.3 % (0.0-0.8); Eosinophils # 0.1 10*3/uL (0.0-0.87); Eosinophils % 0.4 % (0.00-10.9); Hematocrit 28.2 VOL% (35.7-47.0); Immature Granulocytes Absolute 0.16 #; Lymphocytes # 1.3 10*3/uL (1.4-4.0); Lymphocytes % 7.7 % (21.3-54.2); Mean Corpuscular HGB Conc 31.9 GM/DL (32-36); Mean Corpuscular Volume 86.2 FL (87-102); Mean Platelet Volume 9.5 FL (9.6-12.0); Monocytes % 8.5 % (1.7-12.7); Neutrophils % 82.1 % (38.7-73.9); Platelet Count 200 T/CUMM (130-400); Red Blood Count 3.27 MC/CUMM (3.8-5.5); Red Cell Distribution Width 14.4 % (9.3-17.3); White Blood Count 16.3 T/CUMM (4-12)
[2020-07-03 06:14] LABS: Calcium 8.2 MG/DL (8.5-10.1); Osmolality,Calculated 274.7 MOS/KG (273-304)
[2020-07-03] MEDS: INSULIN LISPRO 100 UNIT/ML SUBCUT SCH ×4 (07:13→20:46)
[2020-07-03] MEDS: CYANOCOBALAMIN 1000 MCG/1 ML VIAL SUBCUT SCH (08:30)
[2020-07-03] MEDS: FLUoxetine 20 MG CAPSULE PO SCH (08:30)
[2020-07-03] MEDS: SERTRALINE 100 MG TABLET PO SCH (08:30)
[2020-07-03] MEDS: POTASSIUM CHLORIDE 20 MEQ TABLET PO PRN ×4 (08:31→15:58)
[2020-07-03] MEDS: FUROSEMIDE 40 MG TABLET PO SCH (08:31)
[2020-07-03] MEDS: lisinopriL 2.5 MG TABLET PO SCH (08:31)
[2020-07-03] MEDS: METOPROLOL TARTRATE 25 MG TABLET PO SCH ×2 (08:31→21:00)
[2020-07-03] MEDS: ISOSORBIDE MONONITRATE 30 MG TABLET PO SCH (08:31)
[2020-07-03] MEDS ORDERED: FOLIC ACID 5 MG/1 ML VIAL IM SCH (09:00)
[2020-07-03] MEDS: IRON SUCROSE 200 MG in SODIUM CHLORIDE 0.9% 100 ML IV SCH (09:40)
[2020-07-03] MEDS: LEVOFLOXACIN INJ 500 MG in PREMIX 1 EACH IV SCH (15:29)
[2020-07-03] MEDS: ONDANSETRON 4 MG/2 ML VIAL IV PRN (15:58)
[2020-07-03] MEDS: FOLIC ACID INJ 1 MG in SYRINGE 1 EACH IM SCH (15:59)
[2020-07-03] MEDS: HYDROmorphone 2 MG/1 ML VIAL IV PRN (19:06)
[2020-07-03] MEDS: MELATONIN 3 MG TABLET PO PRN (21:00)
[2020-07-03] MEDS: ATORVASTATIN 40 MG TABLET PO SCH (21:00)
[2020-07-04] MEDS: ALBUTEROL 0.63 MG/3 ML NEB RESP TX SCH ×4 (00:40→19:03)
[2020-07-04] MEDS: PIPERACILLIN/TAZOBACTAM 3,375 MG in SODIUM CHLORIDE 0.9% 100 ML IV SCH ×3 (01:41→20:44)
[2020-07-04 06:43] LABS: Basophils % 0.3 % (0.0-0.8); Eosinophils # 0.1 10*3/uL (0.0-0.87); Eosinophils % 0.8 % (0.00-10.9); Hematocrit 27.8 VOL% (35.7-47.0); Hemoglobin 8.7 GM/DL (12.0-16.0); Immature Granulocytes % 2.4 %; Immature Granulocytes Absolute 0.29 #; Lymphocytes # 1.5 10*3/uL (1.4-4.0); Lymphocytes % 12.6 % (21.3-54.2); Mean Corpuscular HGB Conc 31.3 GM/DL (32-36); Mean Corpuscular Volume 85.5 FL (87-102); Mean Platelet Volume 9.5 FL (9.6-12.0); Monocytes % 9.5 % (1.7-12.7); Neutrophils % 74.4 % (38.7-73.9); Platelet Count 183 T/CUMM (130-400); Red Blood Count 3.25 MC/CUMM (3.8-5.5); Red Cell Distribution Width 14.5 % (9.3-17.3)
[2020-07-04 07:03] LABS: Calcium 8.4 MG/DL (8.5-10.1); Osmolality,Calculated 270.8 MOS/KG (273-304)
[2020-07-04] MEDS: INSULIN LISPRO 100 UNIT/ML SUBCUT SCH ×4 (07:04→20:39)
[2020-07-04] MEDS ORDERED: MAGNESIUM SULF RIDER 2 GM in PREMIX 1 EACH IV PRN (07:55)
[2020-07-04] MEDS ORDERED: MAGNESIUM SULF RIDER 4 GM in PREMIX 1 EACH IV PRN (07:55)
[2020-07-04] MEDS: FUROSEMIDE 40 MG TABLET PO SCH (08:44)
[2020-07-04] MEDS: ISOSORBIDE MONONITRATE 30 MG TABLET PO SCH (08:45)
[2020-07-04] MEDS: IRON SUCROSE 200 MG in SODIUM CHLORIDE 0.9% 100 ML IV SCH (08:45)
[2020-07-04] MEDS: POTASSIUM CHLORIDE 20 MEQ TABLET PO PRN ×3 (08:45→16:25)
[2020-07-04] MEDS: FLUoxetine 20 MG CAPSULE PO SCH (08:45)
[2020-07-04] MEDS: SERTRALINE 100 MG TABLET PO SCH (08:46)
[2020-07-04] MEDS: CYANOCOBALAMIN 1000 MCG/1 ML VIAL SUBCUT SCH (08:46)
[2020-07-04] MEDS: lisinopriL 2.5 MG TABLET PO SCH (08:46)
[2020-07-04] MEDS: METOPROLOL TARTRATE 25 MG TABLET PO SCH ×2 (08:46→20:39)
[2020-07-04] MEDS: HYDROmorphone 2 MG/1 ML VIAL IV PRN ×2 (09:49→20:39)
[2020-07-04] MEDS: FOLIC ACID INJ 1 MG in SYRINGE 1 EACH IM SCH (11:44)
[2020-07-04] MEDS: LEVOFLOXACIN INJ 500 MG in PREMIX 1 EACH IV SCH (12:01)
[2020-07-04] MEDS: ATORVASTATIN 40 MG TABLET PO SCH (20:39)
[2020-07-05] MEDS: ALBUTEROL 0.63 MG/3 ML NEB RESP TX SCH ×4 (01:15→19:56)
[2020-07-05] MEDS: PIPERACILLIN/TAZOBACTAM 3,375 MG in SODIUM CHLORIDE 0.9% 100 ML IV SCH ×3 (05:29→21:21)
[2020-07-05 06:20] LABS: Basophils % 0.2 % (0.0-0.8); Eosinophils % 0.1 % (0.00-10.9); Hematocrit 35.6 VOL% (35.7-47.0); Hemoglobin 10.8 GM/DL (12.0-16.0); Immature Granulocytes % 5.7 %; Immature Granulocytes Absolute 1.04 #; Lymphocytes # 1.4 10*3/uL (1.4-4.0); Lymphocytes % 7.6 % (21.3-54.2); Mean Corpuscular HGB Conc 30.3 GM/DL (32-36); Mean Corpuscular Volume 86.4 FL (87-102); Mean Platelet Volume 10.3 FL (9.6-12.0); Monocytes % 7.7 % (1.7-12.7); NRBC # 0.02 10*3/uL; Neutrophils % 78.7 % (38.7-73.9); Platelet Count 267 T/CUMM (130-400); Red Blood Count 4.12 MC/CUMM (3.8-5.5); Red Cell Distribution Width 14.6 % (9.3-17.3); White Blood Count 18.3 T/CUMM (4-12)
[2020-07-05 06:29] LABS: INR 1.2
[2020-07-05 06:41] LABS: Band Neutrophils 19 % (0-10); Eosinophils 1 % (0-10); Lymphocytes 10 % (20-55); Metamyelocytes 3 %; Myelocytes 2 %; Platelet Estimate Normal; Segmented Neutrophils 56 % (50-85); Total Cells Counted 100
[2020-07-05 06:42] LABS: Anisocytosis 1+; Burr Cells Few; Polychromasia Slight
[2020-07-05 06:50] LABS: Osmolality,Calculated 271.1 MOS/KG (273-304)
[2020-07-05 06:50] LABS: Albumin 1.8 G/DL (3.4-5.0); Bilirubin,Total 2.6 MG/DL (0.2-1.0); Calcium 9.1 MG/DL (8.5-10.1); Osmolality,Calculated 272.1 MOS/KG (273-304); Total Protein 7.3 G/DL (6.4-8.3)
[2020-07-05] MEDS ORDERED: LACTATED RINGERS 1,000 ML IV SCH (10:00)
[2020-07-05] MEDS ORDERED: TISSUE ADHESIVE 1 EACH APPLICATOR TOP ONE (10:04)
[2020-07-05] MEDS ORDERED: LIDOCAINE 1%/EPI INJ 20 ML VIAL ONE (10:04)
[2020-07-05] MEDS ORDERED: BUPIVACAINE MPF 0.25% 30 ML VIAL ONE (10:04)
[2020-07-05] MEDS ORDERED: MICROFIBRILLAR COLLAGEN POWDER 1 GM CAN TOP ONE (10:05)
[2020-07-05] MEDS: INSULIN LISPRO 100 UNIT/ML SUBCUT SCH ×3 (11:31→21:21)
[2020-07-05] MEDS: METOPROLOL TARTRATE 25 MG TABLET PO SCH ×2 (11:34→21:19)
[2020-07-05] MEDS ORDERED: BUPIVACAINE LIPOSOMAL 20 ML/266 MG VIAL ONE (12:01)
[2020-07-05] MEDS ORDERED: LIDOCAINE 2% 5 ML VIAL ONE (13:06)
[2020-07-05] MEDS ORDERED: propofoL 200 MG/20 ML VIAL IV ONE (13:06)
[2020-07-05] MEDS ORDERED: SEVOFLURANE 1 UNIT/15 MINUTE INH ONE (13:06)
[2020-07-05] MEDS ORDERED: NEOSTIGMINE 10 MG/10 ML VIAL ONE (13:07)
[2020-07-05] MEDS ORDERED: ROCURONIUM 100 MG/10 ML VIAL IV ONE (13:07)
[2020-07-05] MEDS ORDERED: ETOMIDATE 40 MG/20 ML VIAL IV ONE (13:07)
[2020-07-05] MEDS ORDERED: LACTATED RINGERS 1,000 ML IV ONE (13:07)
[2020-07-05] MEDS ORDERED: SUCCINYLCHOLINE 200 MG/10 ML VIAL ONE (13:07)
[2020-07-05] MEDS ORDERED: ONDANSETRON 4 MG/2 ML VIAL ONE ×2 (13:07→13:17)
[2020-07-05] MEDS ORDERED: GLYCOPYRROLATE 0.4 MG/2 ML VIAL ONE (13:07)
[2020-07-05] MEDS ORDERED: fentaNYL 100 MCG/2 ML VIAL ONE (13:07)
[2020-07-05] MEDS ORDERED: DEXAMETHASONE 4 MG/1 ML VIAL ONE (13:08)
[2020-07-05] MEDS: ONDANSETRON 4 MG/2 ML VIAL IV PRN (13:18)
[2020-07-05] MEDS: lisinopriL 2.5 MG TABLET PO SCH (13:50)
[2020-07-05] MEDS: FLUoxetine 20 MG CAPSULE PO SCH (13:50)
[2020-07-05] MEDS: SERTRALINE 100 MG TABLET PO SCH (13:50)
[2020-07-05] MEDS: FUROSEMIDE 40 MG TABLET PO SCH (13:50)
[2020-07-05] MEDS: ISOSORBIDE MONONITRATE 30 MG TABLET PO SCH (13:51)
[2020-07-05] MEDS: IRON SUCROSE 200 MG in SODIUM CHLORIDE 0.9% 100 ML IV SCH (14:02)
[2020-07-05] MEDS: FOLIC ACID INJ 1 MG in SYRINGE 1 EACH IM SCH (14:06)
[2020-07-05] MEDS: CYANOCOBALAMIN 1000 MCG/1 ML VIAL SUBCUT SCH (14:08)
[2020-07-05] MEDS: LEVOFLOXACIN INJ 500 MG in PREMIX 1 EACH IV SCH (14:47)
[2020-07-05] MEDS ORDERED: MAGNESIUM SULF RIDER 2 GM in PREMIX 1 EACH IV ONE (18:00)
[2020-07-05] MEDS: ACETAMINOPHEN 325 MG TABLET PO PRN (21:19)
[2020-07-05] MEDS: ATORVASTATIN 40 MG TABLET PO SCH (21:19)
[2020-07-06] MEDS: ALBUTEROL 0.63 MG/3 ML NEB RESP TX SCH ×4 (01:07→19:34)
[2020-07-06 04:57] LABS: Basophils # 0.1 10*3/uL (0.0-0.2); Basophils % 0.3 % (0.0-0.8); Hematocrit 23.9 VOL% (35.7-47.0); Hemoglobin 7.6 GM/DL (12.0-16.0); Immature Granulocytes % 4.9 %; Immature Granulocytes Absolute 0.92 #; Lymphocytes # 1.2 10*3/uL (1.4-4.0); Lymphocytes % 6.4 % (21.3-54.2); Mean Corpuscular HGB Conc 31.8 GM/DL (32-36); Mean Corpuscular Volume 86.3 FL (87-102); Mean Platelet Volume 9.8 FL (9.6-12.0); Monocytes % 5.1 % (1.7-12.7); Neutrophils % 83.3 % (38.7-73.9); Platelet Count 214 T/CUMM (130-400); Red Blood Count 2.77 MC/CUMM (3.8-5.5); Red Cell Distribution Width 14.8 % (9.3-17.3); White Blood Count 18.9 T/CUMM (4-12)
[2020-07-06 05:26] LABS: Band Neutrophils 3 % (0-10); Lymphocytes 5 % (20-55); Segmented Neutrophils 84 % (50-85); Total Cells Counted 100
[2020-07-06 05:27] LABS: Burr Cells Few; Hypochromasia 1+; Ovalocytes Slight; Platelet Estimate Adequate
[2020-07-06] MEDS ORDERED: HYDROmorphone 2 MG/1 ML VIAL IV ONE (05:32)
[2020-07-06 05:34] LABS: Albumin 1.4 G/DL (3.4-5.0); Bilirubin,Total 1.7 MG/DL (0.2-1.0); Osmolality,Calculated 269.4 MOS/KG (273-304); Total Protein 5.8 G/DL (6.4-8.3)
[2020-07-06] MEDS: PIPERACILLIN/TAZOBACTAM 3,375 MG in SODIUM CHLORIDE 0.9% 100 ML IV SCH ×3 (05:44→22:50)
[2020-07-06] MEDS: FOLIC ACID 1 MG TABLET PO SCH (08:51)
[2020-07-06] MEDS: INSULIN LISPRO 100 UNIT/ML SUBCUT SCH ×4 (08:51→20:20)
[2020-07-06] MEDS: FLUoxetine 20 MG CAPSULE PO SCH (08:51)
[2020-07-06] MEDS: SERTRALINE 100 MG TABLET PO SCH (08:51)
[2020-07-06] MEDS: FUROSEMIDE 40 MG TABLET PO SCH (08:52)
[2020-07-06] MEDS: METOPROLOL TARTRATE 25 MG TABLET PO SCH ×2 (08:52→20:20)
[2020-07-06] MEDS: lisinopriL 2.5 MG TABLET PO SCH (08:52)
[2020-07-06] MEDS: CYANOCOBALAMIN 1000 MCG/1 ML VIAL SUBCUT SCH (08:52)
[2020-07-06] MEDS: ISOSORBIDE MONONITRATE 30 MG TABLET PO SCH (08:58)
[2020-07-06] MEDS ORDERED: LIDOCAINE 2% 5 ML VIAL ONE (09:00)
[2020-07-06] MEDS ORDERED: ROCURONIUM 100 MG/10 ML VIAL IV ONE ×2 (09:00→11:18)
[2020-07-06] MEDS ORDERED: SUCCINYLCHOLINE 200 MG/10 ML VIAL ONE ×2 (09:00→11:18)
[2020-07-06] MEDS ORDERED: propofoL 200 MG/20 ML VIAL IV ONE (09:00)
[2020-07-06] MEDS ORDERED: SIMETHICONE CHEW 80 MG TABLET PO PRN (09:37)
[2020-07-06] MEDS: HYDROmorphone 2 MG/1 ML VIAL IV PRN ×2 (09:50→14:59)
[2020-07-06] MEDS: IRON SUCROSE 200 MG in SODIUM CHLORIDE 0.9% 100 ML IV SCH (09:52)
[2020-07-06] MEDS ORDERED: INDOMETHACIN SUPP 50 MG SUPP RECTAL ONE ×2 (10:48→11:15)
[2020-07-06] MEDS ORDERED: LACTATED RINGERS 1,000 ML IV SCH (11:00)
[2020-07-06] MEDS ORDERED: fentaNYL 100 MCG/2 ML VIAL ONE (11:18)
[2020-07-06] MEDS ORDERED: TUBERCULIN SKIN TEST 0.1 ML SYRINGE INTRADERM ONE (13:27)
[2020-07-06] MEDS ORDERED: GLYCOPYRROLATE 0.4 MG/2 ML VIAL ONE (14:00)
[2020-07-06] MEDS ORDERED: SEVOFLURANE 1 UNIT/15 MINUTE INH ONE (14:00)
[2020-07-06] MEDS ORDERED: METOCLOPRAMIDE 10 MG/2 ML VIAL ONE (14:00)
[2020-07-06] MEDS ORDERED: NEOSTIGMINE 10 MG/10 ML VIAL ONE (14:00)
[2020-07-06] MEDS ORDERED: PHENYLEPHRINE DRIP 20 MG/250 ML PREMIX IV ONE (14:00)
[2020-07-06] MEDS: ONDANSETRON 4 MG/2 ML VIAL IV PRN (15:02)
[2020-07-06] MEDS: LEVOFLOXACIN INJ 500 MG in PREMIX 1 EACH IV SCH (15:04)
[2020-07-06] MEDS ORDERED: diphenhydrAMINE CAP 25 MG CAPSULE PO PRN (19:59)
[2020-07-06] MEDS: ATORVASTATIN 40 MG TABLET PO SCH (20:20)
[2020-07-07] MEDS: ALBUTEROL 0.63 MG/3 ML NEB RESP TX SCH ×4 (00:23→20:29)
[2020-07-07] MEDS: PIPERACILLIN/TAZOBACTAM 3,375 MG in SODIUM CHLORIDE 0.9% 100 ML IV SCH ×3 (05:02→21:22)
[2020-07-07] MEDS: INSULIN LISPRO 100 UNIT/ML SUBCUT SCH ×4 (07:42→21:21)
[2020-07-07] MEDS: FOLIC ACID 1 MG TABLET PO SCH (08:52)
[2020-07-07] MEDS: FLUoxetine 20 MG CAPSULE PO SCH (08:52)
[2020-07-07] MEDS: CYANOCOBALAMIN 1000 MCG/1 ML VIAL SUBCUT SCH (08:52)
[2020-07-07] MEDS: SERTRALINE 100 MG TABLET PO SCH (08:52)
[2020-07-07] MEDS: METOPROLOL TARTRATE 25 MG TABLET PO SCH ×2 (08:52→21:22)
[2020-07-07] MEDS ORDERED: SODIUM CHLORIDE 0.45% 1,000 ML IV SCH (09:00)
[2020-07-07] MEDS: CALCIUM CARBONATE CHEW 500 MG TABLET PO PRN (11:19)
[2020-07-07] MEDS: traMADol 50 MG TABLET PO PRN (11:20)
[2020-07-07 11:44] LABS: Basophils # 0.1 10*3/uL (0.0-0.2); Basophils % 0.3 % (0.0-0.8); Eosinophils # 0.1 10*3/uL (0.0-0.87); Eosinophils % 0.4 % (0.00-10.9); Hematocrit 27.1 VOL% (35.7-47.0); Hemoglobin 8.2 GM/DL (12.0-16.0); Immature Granulocytes % 4.1 %; Immature Granulocytes Absolute 0.66 #; Lymphocytes # 1.6 10*3/uL (1.4-4.0); Lymphocytes % 9.9 % (21.3-54.2); Mean Corpuscular HGB Conc 30.3 GM/DL (32-36); Mean Platelet Volume 9.3 FL (9.6-12.0); Neutrophils % 80.3 % (38.7-73.9); Platelet Count 216 T/CUMM (130-400); Red Blood Count 3.08 MC/CUMM (3.8-5.5); Red Cell Distribution Width 15.5 % (9.3-17.3); White Blood Count 15.9 T/CUMM (4-12)
[2020-07-07 12:08] LABS: Band Neutrophils 2 % (0-10); Eosinophils 2 % (0-10); Hypochromasia 2+; Lymphocytes 9 % (20-55); Microcytosis 1+; Platelet Estimate Adequate; Segmented Neutrophils 83 % (50-85); Total Cells Counted 100
[2020-07-07 12:14] LABS: Albumin 1.7 G/DL (3.4-5.0); Bilirubin,Total 0.7 MG/DL (0.2-1.0); Calcium 8.3 MG/DL (8.5-10.1); Osmolality,Calculated 278.5 MOS/KG (273-304); Total Protein 6.1 G/DL (6.4-8.3)
[2020-07-07] MEDS: LEVOFLOXACIN INJ 500 MG in PREMIX 1 EACH IV SCH (13:38)
[2020-07-07] MEDS: HYDROmorphone 2 MG/1 ML VIAL IV PRN ×2 (14:53→21:23)
[2020-07-07] MEDS: ATORVASTATIN 40 MG TABLET PO SCH (21:22)
[2020-07-08] MEDS: ALBUTEROL 0.63 MG/3 ML NEB RESP TX SCH ×4 (00:21→19:52)
[2020-07-08] MEDS: PIPERACILLIN/TAZOBACTAM 3,375 MG in SODIUM CHLORIDE 0.9% 100 ML IV SCH ×3 (05:58→21:38)
[2020-07-08] MEDS: INSULIN LISPRO 100 UNIT/ML SUBCUT SCH ×4 (08:20→20:17)
[2020-07-08 08:24] LABS: Basophils % 0.2 % (0.0-0.8); Eosinophils % 0.2 % (0.00-10.9); Hematocrit 26.3 VOL% (35.7-47.0); Hemoglobin 8.2 GM/DL (12.0-16.0); Immature Granulocytes % 2.5 %; Immature Granulocytes Absolute 0.55 #; Lymphocytes # 1.7 10*3/uL (1.4-4.0); Lymphocytes % 7.7 % (21.3-54.2); Mean Corpuscular HGB Conc 31.2 GM/DL (32-36); Mean Corpuscular Volume 87.4 FL (87-102); Mean Platelet Volume 9.7 FL (9.6-12.0); Monocytes % 4.2 % (1.7-12.7); Neutrophils % 85.2 % (38.7-73.9); Platelet Count 214 T/CUMM (130-400); Red Blood Count 3.01 MC/CUMM (3.8-5.5); Red Cell Distribution Width 15.8 % (9.3-17.3); White Blood Count 21.6 T/CUMM (4-12)
[2020-07-08] MEDS: FOLIC ACID 1 MG TABLET PO SCH (08:40)
[2020-07-08] MEDS: METOPROLOL TARTRATE 25 MG TABLET PO SCH ×2 (08:40→21:41)
[2020-07-08] MEDS: FLUoxetine 20 MG CAPSULE PO SCH (08:41)
[2020-07-08] MEDS: SERTRALINE 100 MG TABLET PO SCH (08:42)
[2020-07-08] MEDS: CYANOCOBALAMIN 1000 MCG/1 ML VIAL SUBCUT SCH (08:42)
[2020-07-08] MEDS: ACETAMINOPHEN 325 MG TABLET PO PRN (08:48)
[2020-07-08 08:55] LABS: Calcium 8.1 MG/DL (8.5-10.1); Hypochromasia 2+; Lymphocytes 6 % (20-55); Microcytosis 1+; Osmolality,Calculated 273.8 MOS/KG (273-304); Ovalocytes Slight; Platelet Estimate Adequate; Segmented Neutrophils 86 % (50-85); Total Cells Counted 100
[2020-07-08 09:30] LABS: Albumin 1.6 G/DL (3.4-5.0); Bilirubin,Direct 0.28 MG/DL (0.0-0.20); Bilirubin,Indirect 0.3 MG/DL (0.0-1.0); Bilirubin,Total 0.6 MG/DL (0.2-1.0); Total Protein 6.3 G/DL (6.4-8.3)
[2020-07-08] MEDS: CALCIUM CARBONATE CHEW 500 MG TABLET PO PRN ×2 (13:13→17:07)
[2020-07-08] MEDS: LEVOFLOXACIN INJ 500 MG in PREMIX 1 EACH IV SCH (13:13)
[2020-07-08] MEDS ORDERED: DEXTROSE 50% 25 GM/50 ML VIAL IV PRN (14:58)
[2020-07-08] MEDS: SILODOSIN 8 MG CAPSULE PO SCH (17:03)
[2020-07-08] MEDS: ATORVASTATIN 40 MG TABLET PO SCH (21:41)
[2020-07-08] MEDS: traMADol 50 MG TABLET PO PRN (21:42)
[2020-07-09] MEDS: ALBUTEROL 0.63 MG/3 ML NEB RESP TX SCH ×4 (01:16→19:31)
[2020-07-09] MEDS: FLUoxetine 20 MG CAPSULE PO SCH (09:14)
[2020-07-09] MEDS: CYANOCOBALAMIN 1000 MCG/1 ML VIAL SUBCUT SCH (09:15)
[2020-07-09] MEDS: SERTRALINE 100 MG TABLET PO SCH (09:15)
[2020-07-09] MEDS: FOLIC ACID 1 MG TABLET PO SCH (09:15)
[2020-07-09] MEDS: METOPROLOL TARTRATE 25 MG TABLET PO SCH ×2 (09:15→22:04)
[2020-07-09] MEDS: INSULIN LISPRO 100 UNIT/ML SUBCUT SCH ×4 (09:49→21:44)
[2020-07-09] MEDS: PIPERACILLIN/TAZOBACTAM 3,375 MG in SODIUM CHLORIDE 0.9% 100 ML IV SCH ×2 (11:42→16:22)
[2020-07-09] MEDS ORDERED: ENOXAPARIN 40 MG/0.4 ML SYRINGE SUBCUT SCH (13:00)
[2020-07-09] MEDS ORDERED: INFLUENZA VIRUS VACCINE 0.5 ML SYRINGE IM ONE (13:34)
[2020-07-09] MEDS ORDERED: ALBUTEROL 0.63 MG/3 ML NEB RESP TX ONE ×2 (14:17→18:14)
[2020-07-09] MEDS: LEVOFLOXACIN INJ 500 MG in PREMIX 1 EACH IV SCH (14:35)
[2020-07-09] MEDS: SILODOSIN 8 MG CAPSULE PO SCH (16:52)
[2020-07-09] MEDS ORDERED: ALBUTEROL/IPRATROPIUM 3 ML NEB RESP TX ONE (18:12)
[2020-07-09] MEDS: ATORVASTATIN 40 MG TABLET PO SCH (22:04)
[2020-07-10] MEDS: PIPERACILLIN/TAZOBACTAM 3,375 MG in SODIUM CHLORIDE 0.9% 100 ML IV SCH ×3 (00:55→16:34)
[2020-07-10] MEDS: ALBUTEROL 0.63 MG/3 ML NEB RESP TX SCH ×4 (00:58→19:40)
[2020-07-10] MEDS: traMADol 50 MG TABLET PO PRN ×2 (03:10→18:28)
[2020-07-10] MEDS ORDERED: ALBUTEROL 0.63 MG/3 ML NEB RESP TX ONE ×2 (06:58→12:05)
[2020-07-10] MEDS: INSULIN LISPRO 100 UNIT/ML SUBCUT SCH ×4 (08:01→21:16)
[2020-07-10] MEDS: SERTRALINE 100 MG TABLET PO SCH (08:48)
[2020-07-10] MEDS: FOLIC ACID 1 MG TABLET PO SCH (08:50)
[2020-07-10] MEDS: METOPROLOL TARTRATE 25 MG TABLET PO SCH ×2 (08:50→21:49)
[2020-07-10] MEDS: FLUoxetine 20 MG CAPSULE PO SCH (08:50)
[2020-07-10] MEDS: CYANOCOBALAMIN 1000 MCG/1 ML VIAL SUBCUT SCH (08:51)
[2020-07-10] MEDS: LEVOFLOXACIN INJ 500 MG in PREMIX 1 EACH IV SCH (12:52)
[2020-07-10] MEDS: SILODOSIN 8 MG CAPSULE PO SCH (16:36)
[2020-07-10] MEDS: ATORVASTATIN 40 MG TABLET PO SCH (21:50)
[2020-07-11] MEDS: PIPERACILLIN/TAZOBACTAM 3,375 MG in SODIUM CHLORIDE 0.9% 100 ML IV SCH ×3 (00:55→16:20)
[2020-07-11] MEDS: ALBUTEROL 0.63 MG/3 ML NEB RESP TX SCH ×4 (01:12→19:32)
[2020-07-11] MEDS: traMADol 50 MG TABLET PO PRN (06:18)
[2020-07-11] MEDS ORDERED: ALBUTEROL 0.63 MG/3 ML NEB RESP TX ONE ×3 (07:03→22:34)
[2020-07-11] MEDS: INSULIN LISPRO 100 UNIT/ML SUBCUT SCH ×4 (07:45→20:39)
[2020-07-11 08:00] LABS: Basophils % 0.4 % (0.0-0.8); Eosinophils # 0.1 10*3/uL (0.0-0.87); Eosinophils % 1.3 % (0.00-10.9); Hematocrit 25.9 VOL% (35.7-47.0); Hemoglobin 7.9 GM/DL (12.0-16.0); Immature Granulocytes % 1.5 %; Immature Granulocytes Absolute 0.14 #; Lymphocytes # 1.6 10*3/uL (1.4-4.0); Lymphocytes % 16.5 % (21.3-54.2); Mean Corpuscular HGB Conc 30.5 GM/DL (32-36); Mean Corpuscular Volume 88.4 FL (87-102); Mean Platelet Volume 9.6 FL (9.6-12.0); Monocytes % 5.9 % (1.7-12.7); Neutrophils % 74.4 % (38.7-73.9); Platelet Count 207 T/CUMM (130-400); Red Blood Count 2.93 MC/CUMM (3.8-5.5); Red Cell Distribution Width 15.9 % (9.3-17.3); White Blood Count 9.6 T/CUMM (4-12)
[2020-07-11 08:36] LABS: Albumin 1.7 G/DL (3.4-5.0); Bilirubin,Total 0.5 MG/DL (0.2-1.0); Calcium 7.6 MG/DL (8.5-10.1); Osmolality,Calculated 277.4 MOS/KG (273-304)
[2020-07-11] MEDS: METOPROLOL TARTRATE 25 MG TABLET PO SCH ×2 (08:51→21:12)
[2020-07-11] MEDS: FOLIC ACID 1 MG TABLET PO SCH (08:51)
[2020-07-11] MEDS: SERTRALINE 100 MG TABLET PO SCH (08:51)
[2020-07-11] MEDS: CYANOCOBALAMIN 1000 MCG/1 ML VIAL SUBCUT SCH (08:51)
[2020-07-11] MEDS: FLUoxetine 20 MG CAPSULE PO SCH (08:51)
[2020-07-11] MEDS: LEVOFLOXACIN INJ 500 MG in PREMIX 1 EACH IV SCH (13:00)
[2020-07-11] MEDS: SILODOSIN 8 MG CAPSULE PO SCH (16:21)
[2020-07-11] MEDS: ATORVASTATIN 40 MG TABLET PO SCH (21:12)
[2020-07-11] MEDS: MELATONIN 3 MG TABLET PO PRN (23:06)
[2020-07-12] MEDS: PIPERACILLIN/TAZOBACTAM 3,375 MG in SODIUM CHLORIDE 0.9% 100 ML IV SCH ×3 (00:21→17:30)
[2020-07-12] MEDS: ALBUTEROL 0.63 MG/3 ML NEB RESP TX SCH ×4 (01:31→19:27)
[2020-07-12] MEDS ORDERED: ALBUTEROL 0.63 MG/3 ML NEB RESP TX ONE (07:18)
[2020-07-12] MEDS: INSULIN LISPRO 100 UNIT/ML SUBCUT SCH ×4 (09:43→20:07)
[2020-07-12] MEDS: ACETAMINOPHEN 325 MG TABLET PO PRN (09:46)
[2020-07-12] MEDS: METOPROLOL TARTRATE 25 MG TABLET PO SCH ×2 (09:46→20:08)
[2020-07-12] MEDS: SERTRALINE 100 MG TABLET PO SCH (09:46)
[2020-07-12] MEDS: FOLIC ACID 1 MG TABLET PO SCH (09:47)
[2020-07-12] MEDS: FLUoxetine 20 MG CAPSULE PO SCH (09:47)
[2020-07-12] MEDS: ASPIRIN EC 81 MG TABLET PO SCH (09:54)
[2020-07-12] MEDS: CALCIUM CARBONATE CHEW 500 MG TABLET PO PRN (10:34)
[2020-07-12] MEDS ORDERED: ALUM/MAG/SIMETH/LIDO VISC 1:1 30 ML BOTTLE PO ONE (12:23)
[2020-07-12] MEDS: LEVOFLOXACIN INJ 500 MG in PREMIX 1 EACH IV SCH (14:55)
[2020-07-12] MEDS: SILODOSIN 8 MG CAPSULE PO SCH (17:29)
[2020-07-12] MEDS: ATORVASTATIN 40 MG TABLET PO SCH (20:08)
[2020-07-12] MEDS: MELATONIN 3 MG TABLET PO PRN (20:08)
[2020-07-13] MEDS: ALBUTEROL 0.63 MG/3 ML NEB RESP TX SCH ×2 (00:03→08:05)
[2020-07-13 07:41] VITALS: BP 138/49
[2020-07-13] MEDS: INSULIN LISPRO 100 UNIT/ML SUBCUT SCH ×2 (07:56→11:41)
[2020-07-13] MEDS: SERTRALINE 100 MG TABLET PO SCH (08:47)
[2020-07-13] MEDS: FLUoxetine 20 MG CAPSULE PO SCH (08:47)
[2020-07-13] MEDS: CALCIUM CARBONATE CHEW 500 MG TABLET PO PRN (08:48)
[2020-07-13] MEDS: FOLIC ACID 1 MG TABLET PO SCH (08:48)
[2020-07-13] MEDS: METOPROLOL TARTRATE 25 MG TABLET PO SCH (08:48)
[2020-07-13] MEDS: ASPIRIN EC 81 MG TABLET PO SCH (08:48)
== END 2020-07-13 11:40 | DRG 415 ==
LOC: EDBD → EDUNIT# → N.ED 00:15 → N.EDINP 06:19 → SUATTDRO 06:19 → N.5E 13:52
PROVIDERS: ADMIT Internal Medicine; ATTEND Internal Medicine
PROC: LAPCHOL (2020-07-05 10:25)